=== PATIENT | male | born 1970 | race Caucasian/White ===

== ENCOUNTER 2017-04-10 19:15 | Emergency (ER) | payer OTHER ==
[~2017-04-10] VITALS: Ht 188 cm; Wt 82.6 kg
--- NOTE | 2017-04-10 19:47 | ED AMS/SEIZURE/WEAK/DIZZY ---
History of Present Illness General Chief Complaint: ETOH/Drug Related Complaint Stated Complaint: REQUESTING DETOX ETOH, -SI/HI Source: patient Exam Limitations: intoxication Vital Signs & Intake/Output Vital Signs & Intake/Output Vital Signs Date Time Temp Pulse Resp B/P B/P Pulse O2 O2 Flow FiO2 Mean Ox Delivery Rate 04/105 96.9 88 18 122/89 96 Room Air 04/10 1919 97.5 112 18 126/86 96 Room Air Allergies Coded Allergies: No Known Drug Allergies (NKDA 04/10/17) Triage Note: PT TO ED REQUESTING ETOH DETOX, SENT FROM [facility]. DENIES SI/HI. DENIES DRUG USE. DRINKS 4L OF WINE DAILY, LAST DRINK WAS THIS MORNING. WAS BREATHALIZED AT 0.198 AT [facility]. STATES HAS BEEN DRINKING FOR 30 YEARS. GETS SHAKES AND TREMORS WHEN HE STOPS DRINKING, DENIES PMH OF SEIZURES. Triage Nurses Notes Reviewed? yes HPI: 46 yo M PMH Alcohol abuse presenting with intoxication, requesting detox. Patient has been drinking for the last 25-30 years, recently 2-4 bottles of wine per day, last drink this morning, went to [facility] to check in for detox "to do right by my family", found to have EtOH level of 198, sent to ED for monitoring pending sobriety. Patient has no complaints, no anxiety or tremors. Denies fevers, chills, chest pain, palpitations, shortness of breath, abdominal pain, nausea, vomiting, headaches, dizziness, or focal neurologic symptoms. Denies illicit drug use. Patient states that he has had some tremors with withdrawal the past, no history of alcohol withdrawal seizures. Denies depression, SI, plan, intent. (ROSALINA KELLY,JORGE) Past History Travel History Traveled to [place] past 21 day No Medical History Any Pertinent Medical History? none Neurological: NONE EENT: NONE Cardiovascular: NONE Respiratory: NONE Gastrointestinal: NONE Hepatic: NONE Renal: NONE Musculoskeletal: NONE Psychiatric: NONE Endocrine: NONE Surgical History Surgical History: none Psychosocial History What is your primary language Albanian Tobacco Use: Current Daily Use Daily Tobacco Use Amount/Type: =< 4 Cigarettes daily ETOH Use: alcoholic Illicit Drug Use: denies illicit drug use Family History Hx Contributory? Yes (ROSALINA KELLY,JORGE) Review of Systems Review of Systems Constitutional: Reports: no symptoms. EENTM: Reports: no symptoms. Respiratory: Reports: no symptoms. Cardiovascular: Reports: no symptoms. GI: Reports: no symptoms. Genitourinary: Reports: no symptoms. Musculoskeletal: Reports: no symptoms. Skin: Reports: no symptoms. Neurological/Psychological: Reports: no symptoms. Hematologic/Endocrine: Reports: no symptoms. Immunologic/Allergic: Reports: no symptoms. All Other Systems: Reviewed and Negative (ROSALINA KELLY,JORGE) Physical Exam Physical Exam General Appearance: well developed/nourished, no apparent distress, alert, awake Head: atraumatic Neck: normal inspection, full range of motion, no midline tenderness Respiratory: normal breath sounds, no respiratory distress, lungs clear Cardiovascular: normal peripheral pulses, tachycardia Gastrointestinal: normal bowel sounds, soft, non-tender Comments: Neuro: No tremors or tongue fasiculations Psych: Fluid speech, normal affect, denies SI Core Measures ACS in differential dx? No CVA/TIA Diagnosis: No Severe Sepsis Present: No Septic Shock Present: No (ROSALINA KELLY,JORGE) Progress Differential Diagnosis: arrythmia, alcohol intoxication, anemia, benign positional vertigo, CVA/stroke, dehydration, drug intoxication, encephalitis, electrolyte imbalance, GI bleed, hypoglycemia, hypoxia, intracranial Hem., intracranial mass/tumor, labrynthitis, meningitis, Meniere's disease, migraine RANKIN, multiple sclerosis, pneumonia, postural hypotension, presyncope, post- traumatic vertigo, sepsis, seizure disorder, subarachnoid Hem., UTI/pyelo, vertebrobasilar insuff Plan of Care: Orders Procedure Date/time Status URINE DRUGS OF ABUSE 04/10 1929 Active ETHANOL 04/10 1929 Complete COMPREHENSIVE METABOLIC PANEL 04/10 1929 Complete CBC WITHOUT DIFFERENTIAL 04/10 1929 Complete Current Medications Sig/Porfirio Start time Last Medication Dose Stop Time Status Admin Diazepam 10 MG ONCE ONE 04/10 2000 CAN (Valium) 04/10 2001 Sodium Chloride 1,000 ML BOLUS ONE 04/10 2000 CAN (Normal Saline 0.9%) 04/10 2159 Thiamine HCl 100 MG ONCE ONE 04/10 2000 CAN (Vitamin B-1) 04/10 2059 Sodium Chloride 100 ML (Normal Saline 0.9%) Laboratory Tests 04/10/17 1930: Anion Gap 16, Estimated GFR > 60, BUN/Creatinine Ratio 10.0, Glucose 121 H, Calcium 9.2, Total Bilirubin 0.6, AST 69 H, ALT 74 H, Alkaline Phosphatase 54, Total Protein 8.0, Albumin 4.5, Globulin 3.5, Albumin/Globulin Ratio 1.3, CBC w Diff NO MAN DIFF REQ, RBC 4.67 L, MCV 99.0 H, MCH 33.8 H, RDW 12.9, MPV 7.9, Gran % 46.4, Lymphocytes % 44.3, Monocytes % 6.7, Eosinophils % 2.1, Basophils % 0.5, Absolute Granulocytes 3.3, Absolute Lymphocytes 3.1, Absolute Monocytes 0.5 , Absolute Eosinophils 0.1, Absolute Basophils 0, PUBS MCHC 34.2, Serum Alcohol 243.0 Physician MDM: 46 yo M PMH Alcohol abuse presenting with intoxication, requesting detox. Tachycardic, no other signs of withdrawal on exam. Plan to check labwork, IVF, monitor HR and for symptoms of detox, BZD prn. The plan of care was discussed with the patient who expressed agreement and understanding. (ROSALINA KELLY,JORGE) Initial ED EKG: none (ROSALINA KELLY,JORGE) Comments: 04/10/2017 11:19:58 PM patient signed out to me by Dr. Romano at [facility]. Patient is now awake alert cooperative with clear speech and stable gait. He is clinically sober and now stable for discharge. His will drive him back to [facility]. (NILAM KELLY,SARMAD Bermeo) Departure Departure Disposition: STILL A PATIENT Condition: Stable Clinical Impression Primary Impression: Alcohol abuse Departure Forms: Customer Survey General Discharge Information (JORGE ROMANO MD) Departure Additional Instructions: Please report back to [employer]. Return if any concerns or sudden worsening. (SARMAD DEMARCO MD)
[2017-04-10 20:04] LABS: ABSOLUTE BASOPHIL COUNT 0 /CUMM (0.0-0.2); ABSOLUTE EOSINOPHIL COUNT 0.1 /CUMM (0.0-0.7); ABSOLUTE GRANULOCYTE CT 3.3 /CUMM (1.4-6.5); ABSOLUTE LYMPH COUNT 3.1 /CUMM (1.2-3.4); ABSOLUTE MONOCYTE COUNT 0.5 /CUMM (0.10-0.60); BASOPHIL % 0.5 % (0.0-2.0); EOSINOPHIL % 2.1 % (0-5); GRANULOCYTE % 46.4 % (42.2-75.2); HEMATOCRIT 46.2 % (42-52); MEAN CORPUSCULAR HGB 33.8 PG (27.0-31.0); MEAN CORPUSCULAR HGB CONC 34.2 G/DL (33.0-37.0); MEAN PLATELET VOLUME 7.9 FL (7.4-10.4); PLATELET COUNT 288 /CUMM (130-400); RBC DISTRIBUTION WIDTH 12.9 % (11.5-14.5); RED BLOOD CELL CT 4.67 /CUMM (4.70-6.10); WHITE BLOOD CELL COUNT 7.1 /CUMM (4.8-10.8)
[2017-04-11] VITALS: BP 126/77
== END 2017-04-11 00:36 ==
LOC: ERH 19:15
PROVIDERS: Emergency Medicine
DX: F10.10 Alcohol abuse, uncomplicated (principal)
CPT/HCPCS: 80307; G0480